=== PATIENT | female | born 1930 | race Caucasian/White ===

== ENCOUNTER → 2018-05-09 | Outpatient (REF) ==
[~2018-05-09] MED LIST: ACYCLOVIR400 MG PO; CIPROFLOXACN500 MG PO; DUONEB IN; FLOVENT HFA44 MCG IN; FLOXIN OTIC0.3 % OT; FUROSEMIDE20 MG PO; LEVAQUIN500 MG PO; LORTAB 10-325 M1 TAB PO; MEGACE40 MG PO; POTASSIMIN75 MG PO; PREDNISONE20 MG PO; PRILOSEC40 MG PO; VALTREX500 MG PO
== END | disposition home or self-care (01) | DRG 914 ==
LOC: LAB 15:47
PROVIDERS: ATTEND Internal Medicine Geriatric Medicine
DX: T14.8XXA Other injury of unspecified body region, initial encounter (principal)

== ENCOUNTER 2019-05-03 02:28 | Inpatient (IN) | payer MEDICARE ==
[~2019-05-03] VITALS: Ht 162.6 cm; Wt 59.0 kg
[~2019-05-03 02:28] MED LIST changes: +ACYCLOVIR200 MG PO; +B121000 MCG; +DIGOXIN0.125 MG PO; +METOPROL TAR25 MG PO; +MULTI VITAMIN PO; +OMEGA 3-6-9 COMPLEX PO; +PRILOSEC OTC20 MG PO; -PRILOSEC40 MG PO; +ZOCOR20 M1 PO; +[UNRECOGNIZED DRUG - OTHER] PO
--- NOTE | 2019-05-03 02:28 | NUR ---
TO TX ROOM VIA STRETCHER BY EMS
--- NOTE | 2019-05-03 03:10 | NUR ---
PT'S CAREGIVER AT BEDSIDE.
[2019-05-03 03:44] LABS: HEMATOCRIT 38.3 % (37.0-47.0); HEMOGLOBIN 12.8 g/dl (12.0-16.0); IMMATURE GRANULOCYTES 0.6 % (0.0-5.0); MEAN CORPUSCULAR HGB 31.8 pG CALC (26.0-32.0); MEAN CORPUSCULAR HGB CONC 33.4 g/L CALC (32.0-36.0); NEUT# 17.21 thou/uL (2.00-7.15); RED BLOOD COUNT 4.03 mill/uL (4.20-5.60); RED CELL DISTRI WIDTH 12.4 % (11.5-15.5)
[2019-05-03 03:54] LABS: ACT PARTIAL THROMBO TIME 22.9 SECONDS (20.0-32.5); ALBUMIN 4.5 g/dL (3.2-5.0); ANION GAP 15 (6-22 (CALC)); BUN 25 mg/dL (8-23); BUN/CREATININE RATIO 28 (12-20 (CALC)); CARBON DIOXIDE 23 mmol/l (22-30); CHLORIDE 104 mmol/l (95-108); CREATININE 0.9 mg/dL (0.5-1.0); GFR 59 ML/MIN (>=60 (CALC)); GFR FOR AFR.AMER. > 60 ML/MIN (>=60 (CALC)); LIPASE 110 u/l (23-300); POTASSIUM 3.8 mmol/l (3.5-5.1); PROTHROMBIN TIME 10.7 SECONDS (9.0-12.5); SGOT/AST 26 u/l (9-36); SODIUM 138 mmol/l (137-146)
[2019-05-03 04:06] LABS: ALKALINE PHOSPHATASE 168 u/l (38-126); BILIRUBIN, TOTAL 0.6 mg/dL (0.0-1.4)
--- NOTE | 2019-05-03 04:14 | NUR ---
PT BACK FROM CT WAITING ON RESULTS.
--- NOTE | 2019-05-03 04:45 | NUR ---
CLEANSED PT OF SMALL ABOUT OF LOOSE STOOL. PT HAS MULTIPLE LARGE AMOUNT OF HEMORRHOIDS.
--- NOTE | 2019-05-03 05:44 | NUR ---
CLEANSED PT AGAIN INCONTINENT OF SMALL AMOUNT OF STOOL.
--- NOTE | 2019-05-03 06:00 | NUR ---
REPORT GIVEN TO KRYSTAL MEANS.
--- NOTE | 2019-05-03 06:20 | NUR ---
Admission Note Report Given to: KRYSTAL MEANS Transported by: Wheelchair X Stretcher Transported with: X Nurse Transporter X Patent IV O2 X Lining Cementer Location: ICU X MS2
[2019-05-03 06:35] VITALS: BP 134/58
--- NOTE | 2019-05-03 07:00 | NUR ---
PATIENT ADMITTED FROM ER VIA STRETCHER WITH ER STAFF AND CAREGIVER IN ATTENDANCE. PATIENT AWAKE AND C/O SEVERE RECTAL AND ABD PAIN. PATIENT TRANSFERED INTO BED. INCONT OF MOD AMT OF BROWN LOOSE STOOL. HEMMEROIDS ARE SEVERE AND INFLAMMED. PERIANAL CLEANED U P WITH SOAP AND H20. NPO AT THIS TIME. IV SITE TO RIGHT FOREARM INTACT AND IVF NS HUNG AND INFUSING AT 125CC/HR. PATIENT ALSO WITH SALINE LOCK TO THE LEFT AC. CALL TO DR. BERUMEN-HOLD BLOOD TRANSFUSION AT THIS TIME-12.8 HGB. [id number] CALL FROM [facility] IN LAB-LACTIC ACID 2.4, TRENDING DOWN BUT STILL HIGH. DR. HANLEY CALLED AND ORDER FOR MORPHINE OBTAINED FOR SEVERE PAIN. WILL MEDICATED WHEN PROFILED ON EMAR. CALL LIGHT IN REACH. WILL CONT TO MONITOR.
--- NOTE | 2019-05-03 09:00 | NUR ---
DR CURRAN IN TO VISIT WITH PT. CHECKED THE HEMMORHOIDS AND HAD A LARGE AMOUNT OF STOOL. SENT FOR TESTING. CONTINUE TO OBSERVE AND MONITOR
[2019-05-03 10:15] VITALS: BP 113/47; BP 118/52
--- NOTE | 2019-05-03 10:15 | NUR ---
ASSESSMENT IS COMPLETED; IV SITE IS FREE FROM REDNESS OR EDEMA. HR IS REG,PULSES ARE STRONG X4, ABD IS DISTENDED/SOFT WITH ACTIVE BS. BREATH SOUNDS ARE CLEAR BILATERALLY. LARGE HEMMORHOIDS ON HER RECTUM.
--- NOTE | 2019-05-03 14:00 | NUR ---
PT IS RELAXING IN BED WITH NO DISTRESS NOTED. IV SITE IS FREE FROM REDNESS OR EDEMA.
[2019-05-03 15:30] VITALS: BP 111/54
--- NOTE | 2019-05-03 17:54 | NUR ---
PT IS RELAXING IN BED CONTINUES TO BE INCONTINENT OF BOWEL AND BLADDER. CONTINUE TO OSBERVE AND MONITOR.
[2019-05-03 19:24] VITALS: BP 119/59
--- NOTE | 2019-05-03 20:24 | NUR ---
PT IN BED C/O PAIN 10/10 IN RECTUM. PT REPORTS JUST HAVING BEEN CLEANED OF STOOL BY PLUMBING MECHANIC. PT MEDICATED FOR PAIN AND PM MEDICATION. HYPERACTIVE BOWEL SOUNDS, ABD DIST AND TENDER TO TOUCH TO LOWER AND UPPER RIGHT ABD.
--- NOTE | 2019-05-03 21:49 | NUR ---
PT CLEANED OF INCONTINENT SMALL AMOUNT OF RUNNY BROWN STOOL.
--- NOTE | 2019-05-03 23:17 | NUR ---
PT MEDICATED W/IV ANTIBIOTIC THERAPY AND IVF REPLENISHED AT THIS TIME. PT WAS SLEEPING SOUNDLY PRIOR TO MY ENTERING ROOM. NO S/O DISTRESS NOTED.
[2019-05-03 23:28] VITALS: BP 117/60
--- NOTE | 2019-05-04 02:30 | NUR ---
PT SLEEPING SOUNDLY, NO S/O DISTRESS NOTED. LIGHTS AND TV ARE OFF, DOOR OPEN PER REQUEST AND CALL LIGHT IS AT SIDE.
--- NOTE | 2019-05-04 03:45 | NUR ---
RECEIVED CALL FROM DELIVERY PROFESSIONAL, ORDERS FOR PT TO REMAIN NPO AND FOR CT ABD/PELVIS WITH ORAL CONTRAST. PT HAS ALLERGY TO IODINE, ORDERS TO PREMEDICATE PRIOR TO CONTRAST GIVEN. CT TO BE DONE AT 0800.
[2019-05-04 04:20] VITALS: BP 126/55
--- NOTE | 2019-05-04 04:46 | NUR ---
PT CLEANED OF INCONTINENT FORMED SOFT LIGHT BROWN STOOL. AND INCONTINENT URINE. PT DENIES BEING ABLE TO CONTROL STOOL FOR A WEEK NOW. PT C/O OF PAIN 12/22 AND WAS MEDICATED FOR PAIN AT THIS TIME.
[2019-05-04 05:20] LABS: HEMATOCRIT 33.5 % (37.0-47.0); HEMOGLOBIN 10.9 g/dl (12.0-16.0); MEAN CELL VOLUME 97.1 fL CALC (80.0-100.0); MEAN CORPUSCULAR HGB 31.6 pG CALC (26.0-32.0); MEAN CORPUSCULAR HGB CONC 32.5 g/L CALC (32.0-36.0); RED BLOOD COUNT 3.45 mill/uL (4.20-5.60); RED CELL DISTRI WIDTH 12.6 % (11.5-15.5)
[2019-05-04 05:41] LABS: ANION GAP 10 (6-22 (CALC)); BUN 13 mg/dL (8-23); BUN/CREATININE RATIO 19 (12-20 (CALC)); CARBON DIOXIDE 22 mmol/l (22-30); CHLORIDE 111 mmol/l (95-108); CREATININE 0.7 mg/dL (0.5-1.0); GFR > 60 ML/MIN (>=60 (CALC)); GFR FOR AFR.AMER. > 60 ML/MIN (>=60 (CALC)); MAGNESIUM 2.2 mg/dL (1.6-2.3); POTASSIUM 3.7 mmol/l (3.5-5.1); SODIUM 139 mmol/l (137-146)
[2019-05-04 07:15] VITALS: BP 140/60
--- NOTE | 2019-05-04 07:15 | NUR ---
PT SITTING UP ON BSC AT THIS TIME WITH USABILITY ARCHITECT IN ROOM GIVING COMPLETE BATH AT THIS TIME. PT IS ALERT AND ORIENTED X3. SHIFT ASSESSMENT COMPLETED AT THIS TIME. IV PATENT X1. IV TO LAC LEAKING. IV DC'D AT THIS TIME CATH TIP INTACT. PT TOLERATED WELL. PT ASSISTED BACK TO BED. CALL LIGHT IN REACH. WILL CONTINUE TO MONITOR.
--- NOTE | 2019-05-04 10:00 | NUR ---
LINDA WILSONP AT BEDSIDE AT THIS TIME
--- NOTE | 2019-05-04 10:30 | NUR ---
PT TO RADIOLOGY VIA WHEELCHAIR
[2019-05-04 11:00] VITALS: BP 110/54
--- NOTE | 2019-05-04 11:00 | NUR ---
PT RETURNED FROM RADIOLOGY VIA WHEELCHAIR. PT ASSITED TO BED. PT TOLERATED TRANSFER WELL.
--- NOTE | 2019-05-04 11:29 | NUR ---
PT RESTING IN BED RESP ARE EVEN AND UNLABORED. NO DISTRESS NOTED. CALL LIGHT IN REACH. WILL CONTINUE TO MONITOR
--- NOTE | 2019-05-04 13:18 | NUR ---
DR GUIDRY AT BEDSIDE AT THIS TIME
[2019-05-04 15:13] VITALS: BP 133/68
[2019-05-04] MEDS ORDERED: DILTIAZEM HCL120 M3 PO (15:42)
[2019-05-04] MEDS ORDERED: LASIX20 MG PO (15:43)
[2019-05-04] MEDS ORDERED: K-TAB20 MEQ PO (15:44)
--- NOTE | 2019-05-04 15:59 | NUR ---
PT RESTING IN BED WATCHING TV. RESP ARE EVEN AND UNLABORED. NO DISTRESS NOTED. CALL LIGHT IN REACH. WILL CONTINUE TO MONITOR.
[2019-05-04 19:20] VITALS: BP 114/49
--- NOTE | 2019-05-04 22:38 | NUR ---
PT MEDICATED ORDERS PROVIDE, ASSESSMENT COMPLETED AT THIS TIME. ASSISTED PT TO BSC AND BACK TO BED. PT HAVING LOOSE LIGHT BROWN STOOL INCONTINENT W/OUT CONTROL OF STOOL, ONLY MODERATE AMOUNT AT THIS TIME. PT IS AWARE OF LOCATION AND SELF, BUT CONFUSED OF DAY, TIME OF DAY AND EVENTS OF THE DAY. REORIENTED NEEDED.
[2019-05-05] VITALS (7 sets, daily range): BP systolic 98–136; BP diastolic 46–71
--- NOTE | 2019-05-05 00:11 | NUR ---
PT MEDICATED ORDERS PROVIDE W/IV ANTIBIOTIC THERAPY. PT WAS SLEEPING AT THIS TIME. NO S/O DISTRESS NOTED. CALL LIGHT AT SIDE.
--- NOTE | 2019-05-05 05:00 | NUR ---
PT MEDICATED W/IV ANTIOTIC THERAPY. NO S/O DISTRESS NOTED.
--- NOTE | 2019-05-05 08:00 | NUR ---
REPORT RECEIVED FROM KRYSTAL RLODAN. PT SITTING UPRIGHT IN BED. DENIES PAIN AT THIS TIME. REPORTS WEAKNESS. FALL PRECAUTIONS REVIEWED. REPORTING OF CONCERNS ENCOURAGED. PLAN OF CARE DISCUSSED. PT STATES ANTICIPATION OF DISCHARGE. DISCHARGE PROCESS REVIEWED. PT STATES UNDERSTANDING. CALL LIGHT REVIEWED AND IN REACH.
--- NOTE | 2019-05-05 10:00 | NUR ---
JANE MCKEON IN TO SEE PT. AT THIS TIME.
[2019-05-05 11:14] LABS: HEMATOCRIT 36.6 % (37.0-47.0); HEMOGLOBIN 11.9 g/dl (12.0-16.0); MEAN CELL VOLUME 95.8 fL CALC (80.0-100.0); MEAN CORPUSCULAR HGB 31.2 pG CALC (26.0-32.0); MEAN CORPUSCULAR HGB CONC 32.5 g/L CALC (32.0-36.0); RED BLOOD COUNT 3.82 mill/uL (4.20-5.60); RED CELL DISTRI WIDTH 12.9 % (11.5-15.5)
--- NOTE | 2019-05-05 14:00 | NUR ---
DR. PARMAR IN TO SEE PT. PLAN OF CARE UPDATED. PT'S CAREGIVER PRESENT.
--- NOTE | 2019-05-05 17:00 | NUR ---
TEMP 100.4, PT REPORTS BODY ACHES ALSO. DR. PARMAR NOTIFIED. ORDER FOR TYLENOL RECEIVED AND MED ADMINISTERED.
--- NOTE | 2019-05-05 20:30 | NUR ---
PT. SITTING UP IN BED PLEASANT AT THIS TIME. ASSESSMENT COMPLETED. IV SITE PATENT. UPDATED ON POC. RECTUM WITH HEMORRHOIDS NOTED INTACT; NO BLEEDING NOTED. PT. REPORTS SHE IS READY TO GO HOME TOMORROW. DNEIES NEEDS AT THIS TIME. CALL LIGHT IS IN REACH.
--- NOTE | 2019-05-05 21:08 | NUR ---
HR 60, MEDICATED WITH ORDRED LOPRESSOR WELL PRN XANAX TO ASSIST WITH SLEEP. ENCOURAGED TO CALL FOR ANY NEEDS. DENIES ANY FURTHER NEEDS. CALL LIGHT IS IN REACH.
--- NOTE | 2019-05-05 23:00 | NUR ---
IV SITE LEAKING AND REMOVED FROM RFA WITH CATHETER TIP INTACT. NEW IV SITE STARTED TO RIGHT HAND X1 ATTEMPT AND TOLERATED WELL. BED ALARM SET FOR SAFETY AND REORIENTED NEED TO CALL FOR ANY OOB ASSISTANCE; VERBALIZES UNDERSTANDING. CALL LIGHT IS IN REACH.
--- NOTE | 2019-05-06 02:11 | NUR ---
RESTING IN BED WITH EYES CLOSED AND SNORING. CALL LIGHT IS IN REACH.
[2019-05-06 03:55] VITALS: BP 140/59
--- NOTE | 2019-05-06 05:20 | NUR ---
PT. ASSISTED TO BSC AND VOIDED, BUT HAD STOOL MIXED IN URINE; UNABLE TO OBTAIN UA ORDERED. ASSISTED BACK INTO BED AND BED ALARM RE-SET. INSTRUCTED TO CALL FOR ANY NEEDS. CALL LIGHT IS IN REACH.
[2019-05-06 05:50] LABS: HEMATOCRIT 34.1 % (37.0-47.0); MEAN CELL VOLUME 97.2 fL CALC (80.0-100.0); MEAN CORPUSCULAR HGB 31.3 pG CALC (26.0-32.0); MEAN CORPUSCULAR HGB CONC 32.3 g/L CALC (32.0-36.0); RED BLOOD COUNT 3.51 mill/uL (4.20-5.60); RED CELL DISTRI WIDTH 12.9 % (11.5-15.5)
[2019-05-06 06:38] LABS: ANION GAP 6 (6-22 (CALC)); BUN 15 mg/dL (8-23); BUN/CREATININE RATIO 18 (12-20 (CALC)); CARBON DIOXIDE 24 mmol/l (22-30); CHLORIDE 114 mmol/l (95-108); CREATININE 0.8 mg/dL (0.5-1.0); GFR > 60 ML/MIN (>=60 (CALC)); GFR FOR AFR.AMER. > 60 ML/MIN (>=60 (CALC)); MAGNESIUM 2.1 mg/dL (1.6-2.3); POTASSIUM 3.2 mmol/l (3.5-5.1); SODIUM 140 mmol/l (137-146)
--- NOTE | 2019-05-06 09:00 | NUR ---
PT RESTING IN BED, NO SIGNS OF DISTRESS NOTED, RESP EVEN AND UNLABORED.PT AROUSED TO VERBAL STIMULI, DISCUSSED POC, VSS. ASSISTED PT TO BSC, PT HAD A BM AND VOIDED UNABLE TO GET A CLEAN CATCH URINE SPECIMEN. HEMMROIDS NOTED. ASSESSMENT COMPLETED, CALL LIGHT IN REACH,CONTINUE TO MONITOR.
[2019-05-06 09:02] VITALS: BP 139/53
--- NOTE | 2019-05-06 10:59 | NUR ---
PT SITTING IN RECLINER AT BEDSIDE, NO SIGNS OF DISTRESS NOTED, RESP EVEN AND UNLABORED. CALL LIGHT IN REACH,CONTINUE TO MONITOR.
[2019-05-06 12:00] VITALS: BP 125/48
--- NOTE | 2019-05-06 12:38 | NUR ---
PT SITTING IN RECLINER AT BEDSIDE, NO SIGNS OF DISTRESS NOTED, RESP EVEN AND UNLABORED, ANTIBIOTIC INFUSING. CALL LIGHT IN REACH,CONTINUE TO MONITOR.
[2019-05-06] MEDS ORDERED: METRONIDAZOL500 MG PO (14:48)
[2019-05-06] MEDS ORDERED: CIPROFLOXACIN250 MG PO (14:48)
--- NOTE | 2019-05-06 16:03 | NUR ---
Discharge instructions given. Patient verbalizes understanding of same. Discharged in stable condition via Wheelchair to Home with friend. All belongings sent with pt.
== END 2019-05-06 16:02 | disposition home or self-care (01) | DRG 394 ==
LOC: ED 02:28 → ED-I 03:00 → ED 05:14 → MS2 05:15
PROVIDERS: Nurse Practitioner Family; ADMIT Internal Medicine; ATTEND Internal Medicine
DX: K55.9 Vascular disorder of intestine, unspecified (principal); B02.29 Other postherpetic nervous system involvement; G72.0 Drug-induced myopathy; K59.8 Other specified functional intestinal disorders; K27.9 Peptic ulcer, site unspecified, unspecified as acute or chronic, without hemorrhage or perforation; I10 Essential (primary) hypertension; I25.10 Atherosclerotic heart disease of native coronary artery without angina pectoris; I48.0 Paroxysmal atrial fibrillation; J47.9 Bronchiectasis, uncomplicated; G47.33 Obstructive sleep apnea (adult) (pediatric); T38.0X5A Adverse effect of glucocorticoids and synthetic analogues, initial encounter; K62.3 Rectal prolapse; M19.90 Unspecified osteoarthritis, unspecified site; K64.4 Residual hemorrhoidal skin tags; K64.8 Other hemorrhoids; H91.90 Unspecified hearing loss, unspecified ear; F41.1 Generalized anxiety disorder; G31.84 Mild cognitive impairment of uncertain or unknown etiology; Z91.041 Radiographic dye allergy status
CPT/HCPCS: S0164

== ENCOUNTER 2019-12-05 16:57 | Observation (INO) | payer MEDICARE ==
[~2019-12-05] VITALS: Ht 165.1 cm; Wt 52.2 kg
[~2019-12-05 16:57] MED LIST changes: +CIPROFLOXACIN250 MG PO; +DILTIAZEM HCL120 M3 PO; +K-TAB20 MEQ PO; +LASIX20 MG PO; +METRONIDAZOL500 MG PO
--- NOTE | 2019-12-05 17:00 | NUR ---
PATIENT TO ROOM VIA WHEELCHAIR AND PHYSICIAN AT BEDSIDE FOR EVAL
--- NOTE | 2019-12-05 17:40 | NUR ---
PT RETURNED FROM US, ALERT AND CONVERSICE. STRONG PEDAL PULSES BILATERALLY. LT LEG 1+ EDEMA PINK AND SHINEY. WARM TO TOUCH. DR ESTEVES AT BEDSIDE TO DISCUSS CLINICAL FINDINGS
[2019-12-05 18:11] LABS: HEMATOCRIT 35.6 % (37.0-47.0); HEMOGLOBIN 11.1 g/dl (12.0-16.0); IMMATURE GRANULOCYTES 0.3 % (0.0-5.0); MEAN CELL VOLUME 98.1 fL CALC (80.0-100.0); MEAN CORPUSCULAR HGB 30.6 pG CALC (26.0-32.0); MEAN CORPUSCULAR HGB CONC 31.2 g/dL CAL (32.0-36.0); NEUT# 5.38 thou/uL (2.00-7.15); RED BLOOD COUNT 3.63 mill/uL (4.20-5.60)
[2019-12-05 18:27] LABS: ALBUMIN 4.4 g/dL (3.2-5.0); BILIRUBIN, TOTAL 0.4 mg/dL (0.0-1.4); BUN 30 mg/dL (8-23); BUN/CREATININE RATIO 33 (12-20 (CALC)); CHLORIDE 103 mmol/l (95-108); CREATININE 0.9 mg/dL (0.5-1.0); GFR 59 ML/MIN (>=60 (CALC)); GFR FOR AFR.AMER. > 60 ML/MIN (>=60 (CALC)); SGOT/AST 38 u/l (9-36); SODIUM 140 mmol/l (137-146); TOTAL PROTEIN 7.7 g/dL (6.3-8.2)
[2019-12-05 18:28] LABS: ALKALINE PHOSPHATASE 65 u/l (38-126); ANION GAP 12 (6-22 (CALC)); CARBON DIOXIDE 29 mmol/l (22-30); POTASSIUM 3.9 mmol/l (3.5-5.1)
[2019-12-05] MEDS ORDERED: ASPIRIN81 MG PO (18:41)
[2019-12-05] MEDS ORDERED: TRIGLIDE160 MG PO (18:43)
--- NOTE | 2019-12-05 18:51 | NUR ---
updated on poc ad iv abt infusing without difficulty
--- NOTE | 2019-12-05 19:11 | NUR ---
PT RESTING. NAD. VSS. AWAITING ADMISSION. ON PHONE WITH FAMILY.
--- NOTE | 2019-12-05 19:17 | NUR ---
VANCO UP AND RUNNING. IV SITE GOOD.
--- NOTE | 2019-12-05 19:41 | NUR ---
ATTEMPTED TO CALL REPORT. WILL CALL BACK.
--- NOTE | 2019-12-05 19:46 | NUR ---
[facility]
--- NOTE | 2019-12-05 19:47 | NUR ---
TO FLOOR VIA STRETCHER WITH VANCO INFUSING.
--- NOTE | 2019-12-05 19:55 | NUR ---
PT ARRIVED TO THE MED SURG UNIT VIA STRETCHER ACCOMPANIED BY ED NURSE. MANAGER PATIENT IN W/PT OBTAINING V/S AND ORIENTING PT TO ROOM, CALL SYSTEM, BED AND TV. PT IS ASKING FOR FOOD AND DRINK/PROVIDED SANDWICH AND JUICE REQUESTED. ASSISTED PT UP TO RESTROOM, SELF AMBULATED W/1X ASSIST AND BACK TO BED. PT TOLERATED WELL. NO S/O DISTRESS AT THIS TIME. PT LEFT UPRIGHT IN BED W/LIGHTS ON, CALL LIGHT W/IN REACH AND EATING.
[2019-12-05 20:00] VITALS: BP 119/38
--- NOTE | 2019-12-05 20:45 | NUR ---
PT RECEIVED FROM ED TO ROOM 268. ARRIVES VIA STRETCHER AND TRANSFERED TO THE BED. PTS VITALS AND ASSESSMENT COMPLETED AT THIS TIME. PTS LUNG SOUNDS ARE STRONG BILATERALLY WITH NO SOB AT THIS TIME. HEART SOUNDS ARE HEARD REGULAR. PTS BOWEL SOUNDS ARE HEARD IN ALL QUARDERS. LT CALF AND FOOT ARE RED AND SENSITIVE TO THE TOUCH. LEFT FOOT GREAT TOE AND NEXT ARE SWOLLEN RED. PICTURE TAKEN. PEDAL PULSE FELT BILATERALLY. PT DENIES PAIN AT THIS TIME UNLESS CALVE/FOOT ARE TOUCHED. ORIENTED TO UNIT, ROOM, CALL CATALAN, LIGHTS, TV. WATER PROVIDED. LIGHT MEAL PROVIDED. PT INSTRUCTED TO CALL FOR NEEDS. CALL CATALAN WITHIN REACH.
--- NOTE | 2019-12-06 00:03 | NUR ---
PT RESTING IN BED WITH C/O OF PAIN. ENCOURAGED TO CALL FOR NAY NEEDS. CALL CATALAN WITH REACH; WILL CONTINUE TO MONITOR.
[2019-12-06 04:00] VITALS: BP 96/57
--- NOTE | 2019-12-06 04:03 | NUR ---
PT REMAINS BEFORE, RESTING QUIETLY WITH OUT ANY CO OF PAIN OR DISTRESS. CALL CATALAN WITHIN REACH. WILL CONTINUE TO OBSERVE.
[2019-12-06 05:22] LABS: HEMATOCRIT 31.2 % (37.0-47.0); IMMATURE GRANULOCYTES 0.3 % (0.0-5.0); MEAN CELL VOLUME 96.9 fL CALC (80.0-100.0); MEAN CORPUSCULAR HGB 31.1 pG CALC (26.0-32.0); MEAN CORPUSCULAR HGB CONC 32.1 g/dL CAL (32.0-36.0); NEUT# 6.61 thou/uL (2.00-7.15); RED BLOOD COUNT 3.22 mill/uL (4.20-5.60); RED CELL DISTRI WIDTH 13.1 % (11.5-15.5)
[2019-12-06 05:37] LABS: ANION GAP 9 (6-22 (CALC)); BUN 24 mg/dL (8-23); BUN/CREATININE RATIO 29 (12-20 (CALC)); CARBON DIOXIDE 27 mmol/l (22-30); CHLORIDE 107 mmol/l (95-108); CREATININE 0.9 mg/dL (0.5-1.0); GFR 59 ML/MIN (>=60 (CALC)); GFR FOR AFR.AMER. > 60 ML/MIN (>=60 (CALC)); POTASSIUM 3.7 mmol/l (3.5-5.1); SODIUM 139 mmol/l (137-146)
[2019-12-06 08:00] VITALS: BP 100/44
--- NOTE | 2019-12-06 08:00 | NUR ---
RECIEVED REPORT ABDIAS MUÑOZ RN. PT SITTING UP IN RECYLINER UPON ENTERING ROOM.INTRODUCED SELF TO PT AND DISCUSSED POC. PT IS A/OX3. ASESSMENT AND VITALS COMPLETED AT THIS TIME. BP 100/44, HR 76, O2 97% ON ROOM AIR. RESPIRATIONS ARE EVEN AND UNLABORED WITH NO SIGNS OF DISTRESS NOTED. LUNG SOUNDS ARE COARSE. HEART RHYTHM IS NORMAL. BOWEL SOUNDS ARE ACTIVE IN ALL QUADRANTS, LAST REPORTED BM 12/05/19. RADIAL AND PEDAL PULSES ARE STRONG WITH NORMAL CAPILLARY REFILL. #20 IN LFA FLUSHED, SITE APPEARS HEALTHY AND PATENT. LEFT LEG APPEARS TO BE SLIGHTLY REDDENED AND 1+ EDEMA. SKIN IS WARM AND DRY WITH NO BREAKDOWN. PT DENIES OF ANY PAIN OR DISCOMFORTS AT THIS TIME. ALL SFAETY PRECAUTIONS ARE IN PLACE WIHT CALL LIGHT IN [facility]. WILL CONTINUE TO MONITOR.
--- NOTE | 2019-12-06 08:37 | NUR ---
DR MI AND PRAVIN, ANRP AT BEDSIDE DISCUSSING POC WITH PT
[2019-12-06 09:19] VITALS: BP 109/41
[2019-12-06] MEDS ORDERED: DOXYCYCL HYC100 MG PO (11:30)
--- NOTE | 2019-12-06 12:13 | NUR ---
PT RESTING IN RECYLINER WATCHING TV. VANCO INFUSING WITH EASE. DISCHARGE INSTRUCTIONS COMPLETED. AWAITING FOR ANTIBIOTICS TO COMPLETED. RESPIRATIONS ARE EVEN AND UNLABORED WITH NO SIGNS OF DISTRESS NOTED. ALL SFATEY PRECAUTIONS ARE IN PLACE WITH CALL LIGHT IN REACH. WILL CONTINUE TO MONITOR
--- NOTE | 2019-12-06 13:54 | NUR ---
IV ANTIBIOTICS COMPLETED AT THIS TIME PT REQUEST FOR IV TO BE REMOVED. IV REMOVED WITH CATHATER STILL INTACTED. PT TOLERATED WELL. PT TO BE DISCHARGED. AWAITING FOR CAREGIVER TO ARRIVE TO EDUCATED BOTH PT ANF CAREGIVER ON DISCHARGE INSTRUTIONS. ALL SAFETY PRECAUTIONS ARE IN PLACE WITH CALL LIGHT IN REACH. WILL CONTINUE TO MONITOR
--- NOTE | 2019-12-06 15:24 | NUR ---
PT RESTING IN RECLINER AT THIS TIME. RESPIRATIONS ARE EVEN AND UNLABORED WITH NO SIGNS OF DISRTESS NOTED. AWAITING FOR TRANSPORTATION. PT STATES " SHE TOOK HER GRANDAUGHTER TO A DOCTOR APPOINTMET AT 2:00 OR 3:00." PT DENIES ANY PAIN OR DISCOMFORTS AT THIS TIME. ALL SAFETY PRECAUTIONS ARE IN PLACE WITH CALL LIGHT IN REACH. WILL CONTINUE TO MONITOR
[2019-12-06 16:00] VITALS: BP 102/51
--- NOTE | 2019-12-06 17:38 | NUR ---
CAREGIVER CALLED FOR TRANSPORTATION OF PT HOME. CAREGIVER STATED "YES IM ON MY WAY."
--- NOTE | 2019-12-06 18:04 | NUR ---
Discharge instructions given. Patient verbalizes understanding of same. Discharged in stable condition via Wheelchair to Home with family. All belongings sent with pt. PT AND CAREGIVER EDUCATED ON DISCHARGED INSTRUCTIONS. PT VERBAZILED UNDERSTANDING. PT DISCHARGED VIA WHEELCHAIR ACCOMPAINED BY WRITTER IN STABLE CONDITION WITH ALL DISCHARGE PAPERWORK AND BELONGINGS.
== END 2019-12-06 18:04 | disposition home or self-care (01) ==
LOC: ED 16:57 → ED-I 18:30 → ED 18:42 → MS2 18:43
PROVIDERS: Family Medicine; ADMIT Internal Medicine; ATTEND Internal Medicine
DX: L03.116 Cellulitis of left lower limb (principal); I10 Essential (primary) hypertension; I25.10 Atherosclerotic heart disease of native coronary artery without angina pectoris; G47.33 Obstructive sleep apnea (adult) (pediatric); F41.9 Anxiety disorder, unspecified; M79.7 Fibromyalgia; Z60.2 Problems related to living alone; Z20.828 Contact with and (suspected) exposure to other viral communicable diseases
CPT/HCPCS: G0378